=== PATIENT | female | born 1950 | race Caucasian/White ===

== ENCOUNTER → 2018-02-10 | Outpatient (CLI) | payer MEDICARE, BC ==
[~2018-02-10] MED LIST: CALCIUM CHEWS PO; EVISTA60 MG PO; SIMVASTATIN10 MG PO; SPIRIVA18 MCG INH; VITAMIN D35000 UNIT PO
--- NOTE | 2018-02-10 11:51 | Diagnostic Imaging Report ---
PROCEDURE: Frontal and lateral views of the chest. COMPARISON: Chest radiograph from 02/17/2016 INDICATIONS: BREAST CANCER CHECK UP FINDINGS: Lines/tubes: None. Lungs: Post radiation changes with volume loss in the right upper lobe. There is biapical pleural/parenchymal scarring which appears overall unchanged. Subcentimeter lung nodules described on prior CT are not conspicuous. The left lung is clear without focal consolidation. Pleura: There is no pleural effusion or pneumothorax. Heart and mediastinum: Normal sized heart. There is tortuosity of the thoracic aorta, unchanged. Bones: No acute bony abnormality. Mild, S-shaped scoliosis of the thoracic spine. 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 IMPRESSION: Postsurgical and postradiation changes as above. No focal consolidation or suspicious masses. No significant change since a prior radiograph from 02/17/2016. Dictated by: Andrea Lee M.D. on 02/10/2018 at 11:52 Electronically approved by: Andrea Lee M.D. on 02/10/2018 at 11:52
== END ==
LOC: RAD 10:41
PROVIDERS: ATTEND Family Medicine
DX: R91.8 Other nonspecific abnormal finding of lung field (principal)
CPT/HCPCS: 71046

== ENCOUNTER → 2019-02-20 | Outpatient (CLI) | payer MEDICARE, BC ==
--- NOTE | 2019-02-20 11:38 | Diagnostic Imaging Report ---
Chest, 2 views, 02/20/2019. History: Abnormal prior exam. Comparison: 02/10/2018. Findings: The cardiomediastinal silhouette and pulmonary vasculature are within normal limits. There is biapical pleural thickening. There is hyperlucency of the right lung compared to the left. Scarring along the medial aspect of the right upper lobe is unchanged. There is no focal consolidation or pleural effusion. There is mild S-shaped scoliosis of the thoracal lumbar spine. There are no acute osseous or soft tissue abnormalities. Impression: No significant change. Signed by: Andrea Tomlinson on 02/20/2019 11:35 AM
== END ==
LOC: RAD 10:26
PROVIDERS: ATTEND Family Medicine
DX: Z09 Encounter for follow-up examination after completed treatment for conditions other than malignant neoplasm (principal); R91.8 Other nonspecific abnormal finding of lung field
CPT/HCPCS: 71046

== ENCOUNTER → 2020-12-25 | Outpatient (CLI) | payer MEDICARE, BC | LOC: RAD 09:11 | PROVIDERS: ATTEND Family Medicine | DX: R91.8 Other nonspecific abnormal finding of lung field (principal) | CPT/HCPCS: 71046 ==